=== PATIENT | male | born 1980 | race Two or more races ===

== ENCOUNTER 2021-09-23 23:23 | Emergency (ER) | payer BC, OTHER ==
[~2021-09-23] VITALS: Ht 182.9 cm; Wt 98.4 kg
[2021-09-23] MEDS ORDERED: TRAZODONE HCL150 MG (23:43)
[2021-09-23] MEDS ORDERED: BENADRYL25 MG (23:43)
== END 2021-09-24 02:20 | disposition left against medical advice (07) ==
LOC: ER 23:23
DX: Z53.21 Procedure and treatment not carried out due to patient leaving prior to being seen by health care provider (principal)